=== PATIENT | male | born 2000 | race Caucasian/White ===

== ENCOUNTER 2024-09-16 08:33 | Emergency (ER) | payer SELFPAY ==
[~2024-09-16] VITALS: Ht 167.6 cm; Wt 54.0 kg
[2024-09-16 08:42] VITALS: BP 116/78; PULSE 90; RESP 16; TEMP 97.8; O2SAT 99
[2024-09-16] MEDS ORDERED: ACETAMINOPHEN 325MG TABLET PO ONE (09:15)
== END 2024-09-16 11:24 | disposition left against medical advice (07) ==
LOC: ER 08:33
DX: R51.9 Headache, unspecified (principal)
CPT/HCPCS: 99283